=== PATIENT | male | born 1960 | race Hispanic/Latino ===

== ENCOUNTER 2017-05-11 09:59 | Outpatient (CLI) | payer OTHER ==
--- NOTE | 2017-05-11 11:42 | XRay Report ---
XRAY RIGHT KNEE 4 THREE VIEWS: 05/11/17 CLINICAL: Right knee pain. FINDINGS: Severe osteoarthritis. Complete loss of the lateral joint space, eburnation of the lateral tibial plateau and the lateral femoral condyle. Widening of the medial joint space and a varus deformity with a large medial osteophyte. Patellofemoral joint arthritis with large osteophytes. No fracture or dislocation. No joint effusion.Unusual soft tissue calcifications at and superior to the lateral femoral condyle are likely benign. IMPRESSION: Severe osteoarthritis with greater involvement of the lateral joint.
== END 2017-05-11 10:00 | disposition home or self-care (01) ==
LOC: SPVIMAG 09:59
PROVIDERS: ATTEND Orthopaedic Surgery
DX: M17.11 Unilateral primary osteoarthritis, right knee (principal); M25.861 Other specified joint disorders, right knee